=== PATIENT | female | born 1965 | race Caucasian/White ===

== ENCOUNTER 2020-08-05 13:02 | Emergency (ER) | payer OTHER, SELFPAY ==
[2020-08-05 13:22] VITALS: BP 105/61; PULSE 83; RESP 18; TEMP 36.7; O2SAT 100; BMI 28.3
[2020-08-05 14:00] VITALS: BP 112/68; PULSE 74; RESP 18; TEMP 36.7; O2SAT 99
--- NOTE | 2020-08-05 14:31 | ED_ITS ---
HPI - URI/Sore Throat General Chief Complaint: Upper Respiratory Symptoms Stated Complaint: throat issues Time Seen by Provider: 08/05/20 14:30 Source: patient Mode of arrival: ambulatory Limitations: no limitations History of Present Illness HPI Narrative: Patient seen last night she was taking her medications when she felt like her pills got stuck. Since then she has had a sore throat, pain with swallowing and foreign body sensation. She tells me she is able to drink water with no issues. She is also able to tolerate her secretions with no problems. She tells me the pain sometimes radiates to her ears and to her neck. No cough, fever, nasal congestion or rhinorrhea Onset (ago): day(s) (<24hrs) Consistency: intermittent Severity: mild Able to tolerate fluids by mouth: Yes Exacerbating factors: swallowing Relieving factors: nothing Associated symptoms: denies other symptoms Treatments prior to arrival: none Related Data Allergies Allergy/AdvReac Type Severity Reaction Status Date / Time No Known Allergies Allergy Unverified 05/03/20 16:31 [No Known Allergies*] Review of Systems Review of Systems: Yes all other systems are reviewed and are negative Constitutional: Constitutional: Reports no additional constitutional complaints, Denies body ache(s), Denies chills, Denies fever(s), Denies headache(s) and Denies weakness Eyes: Eyes: Reports no additional eye complaints and Denies change in vision ENT: Reports system reviewed and no additional complaints, except as documented, Denies dizziness, Denies headache(s), Denies nasal congestion, Denies nasal discharge and Denies neck pain Cardiovascular: Cardiovascular: Reports no additional cardiovascular complaints, Denies chest pain, Denies leg edema and Denies dyspnea Respiratory: Respiratory: Reports no additional respiratory complaints, Denies cough and Denies dyspnea Gastrointestinal: Gastrointestinal: Reports no additional gastrointestinal co mplaints, Denies abdominal pain, Denies diarrhea, Denies nausea and Denies vomiting Genitourinary: Genitourinary: Reports no additional female genitourinary complaints and Denies urinary incontinence Musculoskeletal: Musculoskeletal: Reports no additional musculoskeletal complaints, Denies back pain, Denies arthralgias, Denies joint swelling, Denies neck pain, Denies numbness and Denies tingling Integumentary/Breasts: Skin/Breast: Reports system reviewed and no additional complaints, except as docu and Denies rash Neurologic: Denies Abnormal speech present, Denies dizziness, Denies headache(s), Denies numbness, Denies tingling and Denies weakness PMFSH Past Medical History Medical History Fibromyalgia Social History Social History Smoking Status: Never smoker Use of substances other than those prescribed or required for medical reasons: No Advance Directives: No Advance Directives Information Provided: Yes Physical Exam Vital Signs: Vital Signs: Last Vital Signs Temp 98.0 F 08/05/20 17:08 Pulse 72 08/05/20 17:08 Resp 18 08/05/20 17:08 BP 104/68 08/05/20 17:08 Pulse Ox 100 08/05/20 17:08 Body Mass Index 28.3 Const: General: cooperative, healthy appearing, comfortable and no acute distress Orientation/consciousness: patient oriented x3 Limitations: no limitations HENMT: Other: No stridor or neck soft tissue crepitus. No swelling or tenderness Head: Yes normal to inspection Ears: hearing grossly normal bilaterally General nose exam: Normal external nose present Face and sinus: Yes normal facial exam Mouth: Normal oral and palatal mucosa present Throat: Yes posterior oropharynx normal, Yes tonsils normal and Yes uvula midline Eyes: General: appearance normal, both eyes and all related structures Pupils: Equal, round and reactive pupils present Neck: Neck: Yes normal visual inspection Chest: Chest palpation & inspection: normal inspection of the chest Resp: Effort & Inspection: normal respiratory effort Auscultation: clear to auscultation bilaterally Cardio: Rate: regular rate Rhythm: regular rhythm Peripheral pulses: Peripheral pulses 2+ throughout GI: Inspection: Yes normal to inspection Palpation (GI): Soft to palpation and nontender Auscultation: normal bowel sounds Back/Spine/Pelvis: Thoracic/Lumbar Spine: thoracic and lumbar spine normal to inspection Skin: General skin exam: no rashes or lesions noted Neuro: General: patient oriented x3, no focal motor deficits and normal sensation to monofilament Cranial nerves: Yes Equal, round and reactive pupils present Cognition (Neuro): normal cognition Speech: No Abnormal speech present Gait exam (Neuro): Normal gait present Motor exam (neuro): 5/5 motor strength present throughout Extrem: General: Yes normal to inspection Course Course Course Narrative: Patient here with sore throat, foreign body sensation, painful swallowing after taking some medications last night and feel they are stuck. She is able to drink water and tolerate her secretions. Will check soft tissue x-ray. Give GI cocktail and reassess 1530-Soft tissue x-ray unremarkable. Patient continues to feel symptomatic. Will check CT with IV contrast, labs. 1740-CT shows a 5 mm density within the cervical esophagus likely corresponding to an ingested pill with mild intramural edema within the esophagus. Labs reviewed and unremarkable. The patient is able to tolerate fluids with no difficulty. She believes this to be her Wellbutrin tablet. I discussed the patient that likely will resolve on its own however we will give her follow-up for GI this week. Reviewed worrisome signs and symptoms and when to return to the emergency department. Comfortable with discharge home. MDM - URI/Sore Throat Medical Records Attestation: I reviewed the patient's medical records. Lab Data Attestation: I reviewed the patient's lab results. Result diagrams: 08/05/20 16:05 08/05/20 16:05 Labs: Lab Results 08/05/20 08/05/20 Range/Units 16:05 16:05 WBC 9.4 (4.8-10.8) X10*3/uL RBC 4.72 (4.20-5.50) X10*6/uL Hgb 14.1 (12.0-16.0) g/dl Hct 42.7 (37-47) % MCV 90.5 (80-98) fL MCH 29.9 (27.0-33.0) pg MCHC 33.0 (31.0-35.0) g/dl RDW 12.5 (11.0-16.0) % Plt Count 348 (160-400) X10*3/uL MPV 9.2 L (9.4-12.3) fL Immature Gran % (Auto) 0.9 H (0.0-0.4) % Neut % (Auto) 75.5 H (45-73) % Lymph % (Auto) 16.2 L (20-40) % [place] % (Auto) 5.3 (2-11) % Eos % (Auto) 1.7 (0-4) % Baso % (Auto) 0.4 (0-2) % Lymph # (Auto) 1.5 (1.2-4.9) X10*3/uL [place] # (Auto) 0.5 (0.1-1.2) X10*3/uL Eos # (Auto) 0.2 (0.0-0.4) X10*3/uL Baso # (Auto) 0.0 (0.0-0.2) X10*3/uL Abs Immat Gran (auto) 0.08 H (0.00-0.03) X10*3/uL Absolute Neuts (auto) 7.1 (2.0-8.3) X10*3/uL Absolute Nucleated RBC 0.000 (0.0-0.012) X10*3/uL Nucleated RBC % (auto) 0.0 (0.0-0.2) /100WBC Sodium 139 (135-145) mmol/L Potassium 4.3 (3.3-5.1) mmol/l Chloride 101 (96-108) mmol/L Carbon Dioxide 31 H (22-29) mmol/L Anion Gap 11 L (12-20) BUN 11 (9-16) mg/dL Creatinine 0.95 (0.5-1.4) mg/dL Estim Creat Clear Calc 63.8 Estimated GFR > 60 Random Glucose 94 (60-115) mg/dL Calcium 9.4 (8.4-10.2) mg/dL Imaging Data soft tissue neck yra: Attestation: I personally reviewed and interpreted this imaging study as follows: Radiologist's impression: EXAMINATION: XR SOFT TISSUE NECK CLINICAL INDICATION: Foreign body sensation COMPARISON: None TECHNIQUE: 2 views of the soft tissue neck were obtained. FINDINGS: Soft tissue films of the neck demonstrate a normal larynx, pharynx and upper trachea. No soft tissue swelling or opaque foreign body is demonstrated. Degenerative disc disease of cervical spine. XR/XR soft tissue neck IMPRESSION: No radiopaque foreign body found. Degenerative disease cervical spine. CT neck: Attestation: I personally reviewed and interpreted this imaging study as follows: Radiologist's impression: [address] [address] [address] Scan Report Signed Patient: Loan Zepeda [facility]#: [id number] : 1965Acct:[id number] Age/Sex: 55 / FADM Date: 08/05/20 Loc: [facility].ED Attending Dr: Ordering Physician: EDNA HARRIS NP Date of Service: 08/05/20 Procedure(s): CT soft tissue neck w con Accession Number(s): [id number] cc: EDNA HARRIS NP~ EXAMINATION: CT SOFT TISSUE NECK WITH CONTRAST CLINICAL INFORMATION: Difficulty swallowing COMPARISON: None TECHNIQUE: Following the intravenous administration of 60 mL of Omnipaque 350 intravenous contrast, helical imaging was performed in the axial plane with generation of coronal and sagittal reformatted images. This CT examination was performed using dose optimization techniques as appropriate, variously including the following: *Automated exposure control *Adjustment of mA and/or kV according to patient size (this includes techniques or standardized protocols for targeted exams where dose is matched to indication/reason for exam; i.e. extremities or head) *Use of iterative reconstruction technique DLP: 664 mGy-cm FINDINGS: There is a 5 x 4 x 5 mm density within the esophagus at the level of C6-C7, with some surrounding endoluminal linear density along the yee of the esophagus at this level. The cervical esophagus shows mild submucosal edema suggestive of esophagitis. No cervical adenopathy is identified. The parotid glands are homogeneous in attenuation. The submandibular glands are normal. No contour abnormality or pathologic enhancement is seen within the oral cavity or pharyngeal mucosal space. The laryngeal structures are normal. The parapharyngeal fat is preserved. The carotid sheath vasculature opacify normally. No extra mucosal soft tissue mass or fluid collection is seen. No retropharyngeal fluid collection is seen. The thyroid gland is normal. The superior mediastinum is unremarkable. The lung apices are clear. The mastoid air cells and visualized portions of the paranasal sinuses are well-aerated. The temporomandibular joints are normal. No periapical disease is identified. No osseous abnormalities are seen. The imaged portions of the brain parenchyma are unremarkable. CT/CT soft tissue neck w con IMPRESSION: * There is a 5 mm spheroid density within the cervical esophagus at the level of C6-C7 likely corresponding to an ingested pill. There is density along the course of the adjacent esophagus likely representing degradation/decomposition of the pelvic. * Mild intramural edema within the cervical esophagus suggestive of esophagitis. Discharge Plan Discharge Clinical Impression: Esophagus, foreign body Qualifiers: Encounter type: initial encounter Qualified Code(s): T18.108A - Unspecified foreign body in esophagus causing other injury, initial encounter Patient Disposition: Home, Self-Care Instructions: Esophageal Foreign Body (ED) Additional Instructions: Drink lots of fluids and soft foods Tries lozenges this may help You were given a copy of the report today which shows a pill fragment in your esophagus. You may call GI tomorrow for follow-up appointment. Referrals: Saad Mcnally [Physician] - 2 days
[2020-08-05] MEDS: Magnesium Hydrox/Alum Hydrox 30 ML ORAL.SUSP PO (14:45)
[2020-08-05] MEDS: Lidocaine HCl Viscous 2 % 15 ML SOLUTION MUCOUS MEM (14:45)
--- NOTE | 2020-08-05 15:25 | CT_ITS ---
EXAMINATION: CT SOFT TISSUE NECK WITH CONTRAST CLINICAL INFORMATION: Difficulty swallowing COMPARISON: None TECHNIQUE: Following the intravenous administration of 60 mL of Omnipaque 350 intravenous contrast, helical imaging was performed in the axial plane with generation of coronal and sagittal reformatted images. This CT examination was performed using dose optimization techniques as appropriate, variously including the following: *Automated exposure control *Adjustment of mA and/or kV according to patient size (this includes techniques or standardized protocols for targeted exams where dose is matched to indication/reason for exam; i.e. extremities or head) *Use of iterative reconstruction technique DLP: 664 mGy-cm FINDINGS: There is a 5 x 4 x 5 mm density within the esophagus at the level of C6-C7, with some surrounding endoluminal linear density along the yee of the esophagus at this level. The cervical esophagus shows mild submucosal edema suggestive of esophagitis. No cervical adenopathy is identified. The parotid glands are homogeneous in attenuation. The submandibular glands are normal. No contour abnormality or pathologic enhancement is seen within the oral cavity or pharyngeal mucosal space. The laryngeal structures are normal. The parapharyngeal fat is preserved. The carotid sheath vasculature opacify normally. No extra mucosal soft tissue mass or fluid collection is seen. No retropharyngeal fluid collection is seen. The thyroid gland is normal. The superior mediastinum is unremarkable. The lung apices are clear. The mastoid air cells and visualized portions of the paranasal sinuses are well-aerated. The temporomandibular joints are normal. No periapical disease is identified. No osseous abnormalities are seen. The imaged portions of the brain parenchyma are unremarkable. CT/CT soft tissue neck w con IMPRESSION: * There is a 5 mm spheroid density within the cervical esophagus at the level of C6-C7 likely corresponding to an ingested pill. There is density along the course of the adjacent esophagus likely representing degradation/decomposition of the pelvic. * Mild intramural edema within the cervical esophagus suggestive of esophagitis.
--- NOTE | 2020-08-05 15:33 | PC.NURSE ---
MEDICATED WITH VISCOUS LIDOCAINE AND MAALOX MIXTURE PT REPORTS NUMBNESS TO THROAT BUT STILL HURTS TO SWALLOW. ANNA HARRIS REVIEWED XRAY RESULTS WITH DR AJ, PT TO HAVE CT AND LAB WORK, REPORT TO FELIZ VERDUGO
[2020-08-05 15:45] VITALS: BP 112/68; PULSE 74; RESP 18; TEMP 36.7; O2SAT 99
[2020-08-05 16:14] LABS: MANUAL DIFF FLAG NO
[2020-08-05] MEDS: Ketorolac Tromethamine 30 MG/ML VIAL IVPUSH (16:28)
[2020-08-05 16:31] LABS: Basophils Percent Auto 0.4 % (0-2); Eosinophils Absolute Auto 0.2 X10*3/uL (0.0-0.4); Eosinophils Percent Auto 1.7 % (0-4); Hematocrit 42.7 % (37-47); Hemoglobin 14.1 g/dl (12.0-16.0); Imm Gran Abs Auto 0.08 X10*3/uL (0.00-0.03); Imm Gran Pct Auto 0.9 % (0.0-0.4); Lymphocytes Absolute Auto 1.5 X10*3/uL (1.2-4.9); Lymphocytes Percent Auto 16.2 % (20-40); Mean Corpuscular Hemoglobin 29.9 pg (27.0-33.0); Mean Corpuscular Volume 90.5 fL (80-98); Mean Platelet Volume 9.2 fL (9.4-12.3); Monocytes Absolute Auto 0.5 X10*3/uL (0.1-1.2); Monocytes Percent Auto 5.3 % (2-11); Neutrophils Absolute Auto 7.1 X10*3/uL (2.0-8.3); Neutrophils Percent Auto 75.5 % (45-73); Platelet Count 348 X10*3/uL (160-400); Red Blood Count 4.72 X10*6/uL (4.20-5.50); Red Cell Distribution Width 12.5 % (11.0-16.0); White Blood Count 9.4 X10*3/uL (4.8-10.8)
[2020-08-05] MEDS: 0.9 % Sodium Chloride 1,000 ML 999 ML IV (16:31)
[2020-08-05 16:47] LABS: Anion Gap 11 (12-20); Blood Urea Nitrogen 11 mg/dL (9-16); Calcium 9.4 mg/dL (8.4-10.2); Carbon Dioxide 31 mmol/L (22-29); Chloride 101 mmol/L (96-108); Creatinine Clr Calc Pharmacy 63.8; Estimated Glomerular Filt Rate > 60; Glucose Random 94 mg/dL (60-115); Potassium 4.3 mmol/l (3.3-5.1); Sodium 139 mmol/L (135-145)
[2020-08-05 17:08] VITALS: BP 104/68; PULSE 72; RESP 18; TEMP 36.7; O2SAT 100
[2020-08-05] MEDS: iohexoL 350 MG/ML 100 ML INFUS..BTL IV (17:10)
== END 2020-08-05 18:11 | disposition home or self-care (01) ==
PROVIDERS: Nurse Practitioner Family; Emergency Provider Emergency Medicine
DX: T18.198A Other foreign object in esophagus causing other injury, initial encounter (principal); X58.XXXA Exposure to other specified factors, initial encounter
CPT/HCPCS: 36415; 70360; 70491; 80048; 85025; 96361; 96374; 99284; J1885; Q9967